=== PATIENT | male | born 1960 | race Two or more races ===

== ENCOUNTER 2024-02-21 07:13 | Inpatient (IN) | payer OTHER ==
[~2024-02-21] VITALS: Ht 172.7 cm; Wt 88.0 kg
[2024-02-21] MEDS: MAALOX PLUS or MAALOX 30 ML PO ONE (08:12)
[2024-02-21] MEDS: ONDANSETRON ODT 4 MG TAB PO ONE (08:12)
[2024-02-21] MEDS: DONNATAL 5ml ORAL Elix (BELLADONNA ALK-PHENOBARB) PO ONE (08:13)
[2024-02-21] MEDS: LIDOCAINE VISCOUS 2% 15ML UD PO ONE (08:13)
[2024-02-21 08:36] LABS: Urine Bacteria None Seen /hpf (None Seen)
[2024-02-21 08:38] LABS: Basophils # (auto) 0 10 ^3/uL (0-0.2); Basophils % (auto) 0.6 % (0.0-2.0); Eosinophils # (auto) 0.2 10 ^3/uL (0-0.8); Hematocrit 45.1 % (41.0-53.0); Hemoglobin 15.3 g/dL (13.5-17.5); Lymphocytes # (auto) 1.6 10 ^3/uL (0.4-5.4); Lymphocytes % (auto) 28.4 % (10.0-50.0); Mean Corpuscular Hemoglobin 30.5 pg (28.0-32.0); Mean Corpuscular Hgb Conc. 33.9 g/dL (32.0-36.0); Mean Corpuscular Volume 89.8 fL (80.0-100.0); Monocytes # (auto) 0.4 10 ^3/uL (0-1.3); Monocytes % (auto) 6.7 % (0.0-12.0); Neutrophils # (auto) 3.4 10 ^3/uL (1.6-8.6); Neutrophils % (auto) 61.3 % (37.0-80.0); Nucleated Red Blood Cells % 0.1 %; Platelet Count (auto) 125 10^3/uL (140-450); Red Blood Cells 5.03 10^6/uL (4.5-5.90); Red Cell Distribution Width 13.3 % (11.8-14.3); White Blood Cell 5.5 10^3/uL (4.4-10.8)
[2024-02-21 08:48] LABS: Urine Blood Negative /uL (Negative); Urine Clarity Clear (Clear); Urine Color Colorless (Yellow); Urine Protein, UAD Negative (Negative); Urine Specific Gravity 1.009 (1.001-1.035); Urine Urobilinogen Normal (Negative); Urine WBC <1 /hpf (0 - 3)
[2024-02-21 08:52] LABS: Alanine Aminotransferase 34 U/L (7-40); Albumin 4.7 g/dL (3.2-4.8); Alkaline Phosphatase 82 U/L (46-116); Anion Gap 6 (5-15); Aspartate Aminotransferase 25 U/L (13-40); BUN/Creatinine Ratio 12.1 (10.0-20.0); Bilirubin, Total 0.9 mg/dL (0.2-1.0); Blood Urea Nitrogen 13 mg/dL (9-23); Calcium 9.7 mg/dL (8.7-10.4); Carbon Dioxide 28 mmol/L (20-31); Chloride 111 mmol/L (98-107); Glucose 114 mg/dL (74-106); Lipase 35 U/L (12-53); Sodium 145 mmol/L (136-145); Total Protein 7.1 g/dL (5.7-8.2)
[2024-02-21] MEDS: ASPirin 81 mg TAB PO ONE (10:18)
[2024-02-21] MEDS: NITROGLYCERIN 0.4 MG SL TAB SL ONE (10:20)
[2024-02-21] MEDS ORDERED: ONDANSETRON HCL 4 MG/2 ML VIAL IV PRN (11:45)
[2024-02-21] MEDS ORDERED: NITROGLYCERIN 0.4 MG SL TAB SL PRN ×2 (11:45)
[2024-02-21] MEDS: PANTOPRAZOLE 40 MG/10 ML VIAL INJ IV ONE (12:53)
[2024-02-21 12:59] LABS: INR 1.04 (0.9-1.15)
[2024-02-21] MEDS: ACETAMINOPHEN 325 MG TAB PO PRN (16:32)
[2024-02-21 18:30] VITALS: BP 126/81; PULSE 54; RESP 18; TEMP 98.4; O2SAT 95
[2024-02-21] MEDS ORDERED: CIPR500T4 PO (19:45)
[2024-02-21 20:00] VITALS: PULSE 55; PULSE 56; RESP 16; O2SAT 94
[2024-02-21] MEDS ORDERED: BACL10TA PO (20:14)
[2024-02-21] MEDS ORDERED: FIN5T GT (20:14)
[2024-02-21] MEDS ORDERED: TAMS0.4C39 PO (20:14)
[2024-02-21 21:00] VITALS: BP 119/74; PULSE 55; RESP 16; TEMP 97.8; O2SAT 94
[2024-02-21] MEDS: ATORVASTATIN 20 MG TAB PO SCH (21:34)
[2024-02-21] MEDS: METOPROLOL TARTRATE 25 MG TAB PO SCH (21:36)
[2024-02-21] MEDS: ENOXAPARIN SOD 100 MG/1 ML SYRINGE SC SCH (21:37)
[2024-02-22] VITALS (9 sets, daily range): BP systolic 96–140; BP diastolic 47–91; PULSE 53–65; RESP 16–20; TEMP 97.4–98.5; O2SAT 92–97
[2024-02-22 06:18] LABS: Basophils # (auto) 0.1 10 ^3/uL (0-0.2); Eosinophils # (auto) 0.3 10 ^3/uL (0-0.8); Eosinophils % (auto) 5.1 % (0.0-7.0); Hematocrit 43.3 % (41.0-53.0); Hemoglobin 14.8 g/dL (13.5-17.5); Lymphocytes # (auto) 1.7 10 ^3/uL (0.4-5.4); Lymphocytes % (auto) 26.2 % (10.0-50.0); Mean Corpuscular Hemoglobin 30.8 pg (28.0-32.0); Mean Corpuscular Hgb Conc. 34.2 g/dL (32.0-36.0); Mean Corpuscular Volume 90.1 fL (80.0-100.0); Monocytes # (auto) 0.7 10 ^3/uL (0-1.3); Monocytes % (auto) 10.4 % (0.0-12.0); Neutrophils # (auto) 3.6 10 ^3/uL (1.6-8.6); Neutrophils % (auto) 57.3 % (37.0-80.0); Nucleated Red Blood Cells % 0.1 %; Platelet Count (auto) 122 10^3/uL (140-450); Red Blood Cells 4.81 10^6/uL (4.5-5.90); Red Cell Distribution Width 13.5 % (11.8-14.3); White Blood Cell 6.3 10^3/uL (4.4-10.8)
[2024-02-22 06:29] LABS: Alanine Aminotransferase 29 U/L (7-40); Alkaline Phosphatase 71 U/L (46-116); Anion Gap 4 (5-15); BUN/Creatinine Ratio 11.1 (10.0-20.0); Blood Urea Nitrogen 14 mg/dL (9-23); Calcium 9.7 mg/dL (8.7-10.4); Carbon Dioxide 30 mmol/L (20-31); Chloride 108 mmol/L (98-107); Glucose 108 mg/dL (74-106); LDL Cholesterol 108 mg/dL (< 100); Potassium 4.6 mmol/L (3.5-5.1); Sodium 142 mmol/L (136-145); Triglycerides 156 mg/dL (< 150)
[2024-02-22 06:30] LABS: Albumin 4.1 g/dL (3.2-4.8); Aspartate Aminotransferase 22 U/L (13-40); Bilirubin, Total 1.1 mg/dL (0.2-1.0); Cholesterol 166 mg/dL (< 200); HDL Cholesterol 42 mg/dL (40-59); Total Protein 6.7 g/dL (5.7-8.2)
[2024-02-22] MEDS: ASPirin 81 mg TAB PO SCH (10:45)
[2024-02-22] MEDS: DOCUSATE SOD 100 MG CAP PO SCH (10:45)
[2024-02-22] MEDS: PANTOPRAZOLE 40 MG/10 ML VIAL INJ IV SCH (10:45)
[2024-02-22] MEDS ORDERED: ASPI-325 PO (16:25)
[2024-02-22] MEDS ORDERED: ATOR20TA50 PO (16:25)
[2024-02-22] MEDS ORDERED: MET25T PO (16:25)
[2024-02-23] VITALS (7 sets, daily range): BP systolic 110–141; BP diastolic 65–76; PULSE 48–73; RESP 16–94; TEMP 36.8; O2SAT 94–96
== END 2024-02-23 16:43 | disposition home or self-care (01) | DRG 392 ==
LOC: ER 07:13 → TELE 11:44 → TELE-CENTR 18:16
PROVIDERS: ADMIT Nurse Practitioner Family; ATTEND Nurse Practitioner Family
DX: K21.9 Gastro-esophageal reflux disease without esophagitis (principal); E66.9 Obesity, unspecified; E78.1 Pure hyperglyceridemia; N40.0 Benign prostatic hyperplasia without lower urinary tract symptoms; N45.2 Orchitis; Z68.29 Body mass index [BMI] 29.0-29.9, adult; Z79.899 Other long term (current) drug therapy
CPT/HCPCS: 36415; 71046; 76705; 80053; 80061; 81001; 83690; 83735; 84484; 85025; 85379; 85610; 93005; 93306; G0378; J2470; Q0162